=== PATIENT | male | born 1960 | race Caucasian/White ===

== ENCOUNTER → 2018-07-13 | Outpatient (REF) | payer OTHER, MEDICAID ==
[2018-07-13 14:11] LABS: BASO # 0.1 10^3/uL (0.0-0.2); BASO % 0.7 % (0.0-1.0); EOS # 0.2 10^3/uL (0.0-0.50); EOS % 1.5 % (0.0-3.0); HEMATOCRIT 46.9 % (42.0-52.0); HEMOGLOBIN 15.8 g/dl (13.5-17.5); LYMPH # 2.7 10^3/uL (1.5-4.5); LYMPH % 26.4 % (24.0-44.0); MEAN CORPUSCULAR HEMOGLOBIN 32.4 pg (27.0-33.0); MEAN CORPUSCULAR HGB CONC 33.7 g/dl (32.0-36.5); MEAN CORPUSCULAR VOLUME 96.3 fl (80.0-96.0); MONO # 0.8 10^3/uL (0.0-0.8); MONO % 7.2 % (0.0-5.0); NEUTROPHILS # 6.6 10^3/uL (1.8-7.7); NEUTROPHILS % 63.4 % (36.0-66.0); PLATELET COUNT, AUTOMATED 308 10^3/uL (150-450); RED BLOOD COUNT 4.87 10^6/uL (4.30-6.10); WHITE BLOOD COUNT 10.4 10^3/uL (4.0-10.0)
[2018-07-13 14:15] LABS: APPEARANCE, URINE CLEAR (CLEAR); BACTERIA, URINE AUTO NEGATIVE (NEGATIVE); BILIRUBIN, URINE AUTO NEGATIVE (NEGATIVE); BLOOD, URINE BLOOD NEGATIVE (NEGATIVE); COLOR, URINE YELLOW (YELLOW); GLUCOSE, URINE (UA) AUTO NEGATIVE (NEGATIVE); KETONE, URINE AUTO NEGATIVE (NEGATIVE); LEUKOCYTE ESTERASE, URINE AUTO NEGATIVE (NEGATIVE); MUCUS, URINE SMALL (NEGATIVE); NITRITE, URINE AUTO NEGATIVE (NEGATIVE); PROTEIN, URINE AUTO 1+ mg/dL (NEGATIVE); RBC, URINE AUTO 1 /HPF (0-3); SPECIFIC GRAVITY URINE AUTO 1.017 (1.002-1.035); SQUAMOUS EPITHELIAL CELL UR AU 1 /HPF (0-6); UROBILINOGEN, URINE AUTO 0.2 mg/dL (0.0-2.0); WBC, URINE AUTO 1 /HPF (0-3)
[2018-07-13 14:44] LABS: HEMOGLOBIN A1c 6.4 %
[2018-07-13 14:49] LABS: ALBUMIN 4.3 GM/DL (3.2-5.2); ALT/SGPT 25 U/L (12-78); BILIRUBIN,TOTAL 0.4 MG/DL (0.2-1.0); BLOOD UREA NITROGEN 13 MG/DL (7-18); CALCIUM LEVEL 8.5 MG/DL (8.5-10.1); CARBON DIOXIDE LEVEL 27 MEQ/L (21-32); CHLORIDE LEVEL 107 MEQ/L (98-107); CHOLESTEROL LEVEL 221 MG/DL (<200); CREATININE FOR GFR 0.66 MG/DL (0.70-1.30); GLOMERULAR FILTRATION RATE > 60.0 (>56); GLUCOSE, FASTING 88 MG/DL (70-100); HDL CHOLESTEROL 29 MG/DL (>40); LDL CHOLESTEROL 127 MG/DL (<100); NON-HDL-C 192 MG/DL; POTASSIUM SERUM 4.6 MEQ/L (3.5-5.1); SODIUM LEVEL 141 MEQ/L (136-145); TOTAL PROTEIN 7.5 GM/DL (6.4-8.2); TRIGLYCERIDES LEVEL 326 MG/DL (<150)
[2018-07-13 15:12] LABS: MAU/CREAT RATIO 240.9 MCG/MG (0.0-30.0); TOTAL 25(OH) VITAMIN D 11.4 NG/ML (30.0-100.0)
== END ==
LOC: M LABDRWAD 13:53
PROVIDERS: ATTEND Internal Medicine
DX: Z13.228 Encounter for screening for other metabolic disorders (principal); E11.9 Type 2 diabetes mellitus without complications

== ENCOUNTER → 2018-08-29 | Outpatient (CLI) | payer OTHER ==
--- NOTE | 2018-08-29 19:25 | REP ---
MR LUMBAR SPINE WITHOUT CONTRAST: HISTORY: Back pain. Decreased signal intensity on T2-weighted images is present in the T12-L1, L1-2, L4-5 and L5-S1 intervertebral discs. The discs are decreased in height. These findings are consistent with disc degeneration. A diffuse disc bulge is present at the L1 -2 level. There is minimal compression of the thecal sac. There is hypertrophy of the posterior articulating facets. The L1 nerves exit the neural foramina without compression. A diffuse disc bulge is present at the L2-3 level. There is minimal compression of the thecal sac. There is hypertrophy of the posterior articulating facets. The L2 nerves exit the neural foramina without compression. A diffuse disc bulge is present at the L3-4 level. There is minimal compression of the thecal sac. There is hypertrophy of the posterior articulating facets. The L3 nerves exit the neural foramina without compression. A diffuse disc bulge and small central disc protrusion are present at the L4-5 level. There is hypertrophy of the ligamenta flava and posterior articulating facets. These findings produce minimal central canal stenosis. The L4 nerves exit the neural foramina without compression. A diffuse disc bulge is present at the L5-S1 level. This abuts the thecal sac. There is hypertrophy of the posterior articulating facets. There are 8 mm of grade 1 spondylolisthesis of L5 on S1. This is associated with L5 pars defects. There is compression of the L5 nerves in the neural foramina. The conus medullaris is normal in appearance terminating at the level of the L1-2 intervertebral disc . Increased signal intensity on T2 weighted images is present in the endplates of the T12 through L2 and L5 and S1 vertebral bodies. This represents degenerative change. IMPRESSION: 1. Diffuse disc bulges at the L1-2 through L3-4 levels with minimal thecal sac compression. 2. Minimal central canal stenosis at the L4-5 level secondary to disc bulge, disc protrusion, ligamentous, and facet hypertrophy. 3. Diffuse disc bulge at the L5-S1 level. This abuts the thecal sac. There is grade 1 spondylolisthesis of L5 on S1 with associated L5 pars defect. There is compression of the L5 nerves in the neural foramina. Electronically Signed by Luis Alfredo Link MD 08/30/2018 08:32 A
== END ==
LOC: M RAD 14:58
PROVIDERS: ATTEND Family Medicine
DX: M51.36 Other intervertebral disc degeneration, lumbar region (principal); M51.37 Other intervertebral disc degeneration, lumbosacral region; M51.26 Other intervertebral disc displacement, lumbar region; M51.27 Other intervertebral disc displacement, lumbosacral region

== ENCOUNTER → 2018-12-11 | Outpatient (CLI) | payer OTHER ==
[2018-12-11 16:48] LABS: HEMOGLOBIN A1c 6.8 %
[2018-12-11 16:50] LABS: ALBUMIN 3.6 GM/DL (3.2-5.2); ALT/SGPT 19 U/L (12-78); BILIRUBIN,TOTAL 0.3 MG/DL (0.2-1.0); BLOOD UREA NITROGEN 18 MG/DL (7-18); CALCIUM LEVEL 9.1 MG/DL (8.5-10.1); CARBON DIOXIDE LEVEL 26 MEQ/L (21-32); CHLORIDE LEVEL 111 MEQ/L (98-107); CHOLESTEROL LEVEL 206 MG/DL (<200); CHOLESTEROL RISK RATIO 7.103 (<5); CREATININE FOR GFR 0.85 MG/DL (0.70-1.30); GLOMERULAR FILTRATION RATE > 60.0 (>56); GLUCOSE, FASTING 141 MG/DL (70-100); HDL CHOLESTEROL 29 MG/DL (>40); LDL CHOLESTEROL 107 MG/DL (<100); NON-HDL-C 177 MG/DL; POTASSIUM SERUM 4.5 MEQ/L (3.5-5.1); SODIUM LEVEL 143 MEQ/L (136-145); TOTAL PROTEIN 6.7 GM/DL (6.4-8.2); TRIGLYCERIDES LEVEL 350 MG/DL (<150)
== END ==
LOC: M LAB 15:47
PROVIDERS: ATTEND Family Medicine
DX: E11.9 Type 2 diabetes mellitus without complications (principal); Z12.5 Encounter for screening for malignant neoplasm of prostate

== ENCOUNTER → 2019-03-16 | Outpatient (REF) | payer OTHER ==
[2019-03-16 10:18] LABS: BASO # 0.1 10^3/uL (0.0-0.2); BASO % 0.6 % (0.0-1.0); EOS # 0.2 10^3/uL (0.0-0.5); EOS % 1.8 % (0.0-3.0); HEMATOCRIT 46.8 % (42.0-52.0); LYMPH # 2.5 10^3/uL (1.5-5.0); LYMPH % 26.6 % (24.0-44.0); MEAN CORPUSCULAR HEMOGLOBIN 32.7 pg (27.0-33.0); MEAN CORPUSCULAR HGB CONC 34.2 g/dl (32.0-36.5); MEAN CORPUSCULAR VOLUME 95.7 fl (80.0-96.0); MONO # 0.7 10^3/uL (0.0-0.8); MONO % 7.6 % (0.0-5.0); PLATELET COUNT, AUTOMATED 299 10^3/uL (150-450); RED BLOOD COUNT 4.89 10^6/uL (4.30-6.10); WHITE BLOOD COUNT 9.5 10^3/uL (4.0-10.0)
[2019-03-16 10:36] LABS: HEMOGLOBIN A1c 6.6 %
[2019-03-16 10:39] LABS: INR 0.97; PROTHROMBIN TIME 12.6 SECONDS (11.8-14.0)
[2019-03-16 10:40] LABS: PARTIAL THROMBOPLASTIN TIME 39.4 SECONDS (25.0-38.4)
[2019-03-16 10:45] LABS: ALT/SGPT 39 U/L (12-78); BILIRUBIN,TOTAL 0.3 MG/DL (0.2-1.0); BLOOD UREA NITROGEN 14 MG/DL (7-18); CALCIUM LEVEL 9.1 MG/DL (8.5-10.1); CARBON DIOXIDE LEVEL 27 MEQ/L (21-32); CHLORIDE LEVEL 108 MEQ/L (98-107); CHOLESTEROL LEVEL 227 MG/DL (<200); CREATININE FOR GFR 0.91 MG/DL (0.70-1.30); GLOMERULAR FILTRATION RATE > 60.0 (>56); GLUCOSE, FASTING 160 MG/DL (70-100); POTASSIUM SERUM 4.4 MEQ/L (3.5-5.1); SODIUM LEVEL 140 MEQ/L (136-145); TRIGLYCERIDES LEVEL 553 MG/DL (<150)
[2019-03-16 10:46] LABS: ALBUMIN 4.2 GM/DL (3.2-5.2); CHOLESTEROL RISK RATIO 6.485 (<5); HDL CHOLESTEROL 35 MG/DL (>40); NON-HDL-C 192 MG/DL; THYROID STIMULATING HORMONE 0.416 uIU/ML (0.358-3.740); TOTAL PROTEIN 7.6 GM/DL (6.4-8.2)
== END ==
LOC: M LAB REF 09:51
PROVIDERS: ATTEND Family Medicine
DX: Z01.818 Encounter for other preprocedural examination (principal); E78.5 Hyperlipidemia, unspecified; E11.9 Type 2 diabetes mellitus without complications

== ENCOUNTER → 2019-03-20 | Outpatient (CLI) | payer OTHER ==
--- NOTE | 2019-03-21 02:00 | REP ---
Clinical: Preoperative assessment . Comparison: None . Technique: PA and lateral. Findings: The mediastinum and cardiac silhouette are normal. The lung willis are clear and without acute consolidation, effusion, or pneumothorax. The skeletal structures are intact and normal. Impression: 1. No acute cardiopulmonary process. Electronically Signed by Asad Gomez MD 03/21/2019 01:52 A
== END ==
LOC: M ADAMS 15:41
PROVIDERS: ATTEND Family Medicine
DX: Z01.818 Encounter for other preprocedural examination (principal)

== ENCOUNTER → 2019-11-12 | Outpatient (CLI) | payer OTHER ==
--- NOTE | 2019-11-12 12:00 | REPPI ---
REASON FOR EXAM: Back pain. PRIORS: None. There is a grade 2 L5 upon S1 spondylolisthesis secondary to bilateral L5 spondylolysis. There is air density in the L5-S1 disc space consistent with vacuum phenomenon from degenerative disc disease. There is moderate L5-S1 disc space narrowing particularly posteriorly with mild to moderate L4-5 posterior disc space narrowing. More mild appearing disc space narrowing is seen at L1-2 and L2-3 with moderate T12-L1 and L1-2 disc space narrowing with anterior and posterior osteophytic ridging seen at those levels. Degenerative facet joint changes are seen at every level bilaterally particularly L4-5 and L5-S1. The pedicles are intact bilaterally. Vertebral body height is within normal limits. IMPRESSION: Chronic changes as described above. Electronically Signed by Pablo Martinez DO 11/12/2019 01:23 P
== END ==
LOC: M PLAIMG 08:39
PROVIDERS: ATTEND Neurological Surgery
DX: M43.16 Spondylolisthesis, lumbar region (principal); M51.37 Other intervertebral disc degeneration, lumbosacral region; M51.36 Other intervertebral disc degeneration, lumbar region; M25.78 Osteophyte, vertebrae

== ENCOUNTER → 2019-11-12 | Outpatient (CLI) | payer MEDICAID, OTHER ==
--- NOTE | 2019-11-14 15:31 | DEXA ---
AP SPINE L1 - L4 1.343 1.2 1.2 LT FEMUR TOTAL 1.109 0.8 0.5 LT NECK 1.065 0.2 0.9 RT FEMUR TOTAL 1.215 1.6 1.3 RT NECK 1.165 0.9 1.6 TOTAL BODY TOTAL OTHER COMMENTS: Normal bone densitometry of the spine and hips. FOLLOW-UP: Recommendation for the next bone density exam: 5 years. IZABELLA
== END ==
LOC: M WHC 08:05
PROVIDERS: ATTEND Neurological Surgery
DX: M43.16 Spondylolisthesis, lumbar region (principal)

== ENCOUNTER → 2020-03-11 | Outpatient (REF) | payer OTHER ==
[2020-03-11 17:26] LABS: BASO # 0.1 10^3/uL (0.0-0.2); BASO % 0.7 % (0.0-1.0); EOS # 0.1 10^3/uL (0.0-0.5); EOS % 1.5 % (0.0-3.0); HEMATOCRIT 48.5 % (42.0-52.0); HEMOGLOBIN 16.4 g/dl (13.5-17.5); LYMPH # 2.1 10^3/uL (1.5-5.0); LYMPH % 23.1 % (24.0-44.0); MEAN CORPUSCULAR HEMOGLOBIN 32.2 pg (27.0-33.0); MEAN CORPUSCULAR HGB CONC 33.8 g/dl (32.0-36.5); MEAN CORPUSCULAR VOLUME 95.1 fl (80.0-96.0); MONO # 0.6 10^3/uL (0.0-0.8); MONO % 6.7 % (0.0-5.0); NEUTROPHILS # 6.2 10^3/uL (1.5-8.5); NEUTROPHILS % 67.6 % (36.0-66.0); PLATELET COUNT, AUTOMATED 273 10^3/uL (150-450); WHITE BLOOD COUNT 9.2 10^3/uL (4.0-10.0)
[2020-03-11 18:18] LABS: MAU/CREAT RATIO 258.9 MCG/MG (0.0-30.0)
[2020-03-11 20:34] LABS: ALBUMIN 4.1 GM/DL (3.2-5.2); ALT/SGPT 23 U/L (12-78); BILIRUBIN,TOTAL 0.3 MG/DL (0.2-1.0); BLOOD UREA NITROGEN 14 MG/DL (7-18); CARBON DIOXIDE LEVEL 24 MEQ/L (21-32); CHLORIDE LEVEL 107 MEQ/L (98-107); CHOLESTEROL LEVEL 250 MG/DL (<200); CREATININE FOR GFR 0.83 MG/DL (0.70-1.30); GLOMERULAR FILTRATION RATE > 60.0 (>49); GLUCOSE, FASTING 150 MG/DL (70-100); HDL CHOLESTEROL 25 MG/DL (>40); NON-HDL-C 225 MG/DL; SODIUM LEVEL 139 MEQ/L (136-145); TOTAL PROTEIN 7.5 GM/DL (6.4-8.2); TRIGLYCERIDES LEVEL 801 MG/DL (<150)
[2020-03-11 22:35] LABS: HEMOGLOBIN A1c 6.5 %
== END ==
LOC: M LAB REF 16:17
PROVIDERS: ATTEND Physician Assistant
DX: E11.69 Type 2 diabetes mellitus with other specified complication (principal)

== ENCOUNTER → 2020-04-09 | Outpatient (CLI) | payer OTHER ==
--- NOTE | 2020-04-09 13:44 | REP ---
INDICATION: DEGENERATE DISC DISEASE. COMPARISON: None. TECHNIQUE: Single AP view of the pelvis FINDINGS: Mild age-related degenerative changes to the bilateral hips includes increased sclerosis along the acetabular roof with marginal spurring and minimal joint space narrowing. Sacroiliac joints appear symmetric and normal. No evidence for acute or fracture or dislocation. IMPRESSION: Mild symmetric age-related changes to the bilateral hips. <Electronically signed by Asad Gomez > 04/09/20 [id number]
--- NOTE | 2020-04-09 14:24 | REP ---
INDICATION: DEGENERATE DISC DISEASE COMPARISON: 11/12/2019 TECHNIQUE: AP, lateral, flexion/extension, bilateral oblique, and coned-down views. FINDINGS: Chronic grade 2 anterolisthesis of approximately 18 mm at the L5-S1 level due to bilateral spondylolysis is again noted. Associated endplate sclerosis and disc space narrowing is appreciated. Alignment and lordosis from T12 through L5 is normal. Moderate/early advanced degenerative changes including endplate sclerosis with disc space narrowing and marginal spurring at T12-L1 and L1-L2 is appreciated. L2-3 through L4-5 appear relatively age-appropriate. IMPRESSION: Chronic advanced degenerative changes at the L5-S1 level including grade 2 spondylolysis with spondylolisthesis. Moderate early advanced degenerative changes noted through the upper lumbar spine. <Electronically signed by Asad Gomez > 04/09/20 [id number]
== END ==
LOC: M ADAMS 12:00
PROVIDERS: ATTEND Physician Assistant
DX: M48.062 Spinal stenosis, lumbar region with neurogenic claudication (principal); M17.0 Bilateral primary osteoarthritis of knee; M51.36 Other intervertebral disc degeneration, lumbar region; M43.16 Spondylolisthesis, lumbar region

== ENCOUNTER → 2020-04-15 | Outpatient (CLI) | payer SELFPAY | LOC: M LABSMTC 17:08 | PROVIDERS: ATTEND Pediatrics | DX: Z11.59 Encounter for screening for other viral diseases (principal) ==

== ENCOUNTER → 2020-07-18 | Outpatient (REF) | payer OTHER ==
[2020-07-18 13:19] LABS: ALBUMIN 4.1 GM/DL (3.2-5.2); ALT/SGPT 24 U/L (12-78); BILIRUBIN,TOTAL 0.3 MG/DL (0.2-1.0); BLOOD UREA NITROGEN 13 MG/DL (7-18); CALCIUM LEVEL 9.2 MG/DL (8.8-10.2); CARBON DIOXIDE LEVEL 27 MEQ/L (21-32); CHLORIDE LEVEL 108 MEQ/L (98-107); CHOLESTEROL LEVEL 149 MG/DL (<200); CHOLESTEROL RISK RATIO 5.518 (<5); CREATININE FOR GFR 0.86 MG/DL (0.70-1.30); GLOMERULAR FILTRATION RATE > 60.0 (>49); GLUCOSE, FASTING 155 MG/DL (70-100); GLUCOSE,RANDOM 155 MG/DL (LESS THAN 200); HDL CHOLESTEROL 27 MG/DL (>40); NON-HDL-C 122 MG/DL; POTASSIUM SERUM 4.5 MEQ/L (3.5-5.1); SODIUM LEVEL 140 MEQ/L (136-145); TOTAL PROTEIN 7.4 GM/DL (6.4-8.2); TRIGLYCERIDES LEVEL 448 MG/DL (<150)
[2020-07-18 14:04] LABS: HEMOGLOBIN A1c 6.4 %
[2020-07-18 14:43] LABS: MAU/CREAT RATIO 127.6 MCG/MG (0.0-30.0)
== END ==
LOC: M LAB REF 11:42
PROVIDERS: ATTEND Physician Assistant
DX: E11.9 Type 2 diabetes mellitus without complications (principal); Z12.5 Encounter for screening for malignant neoplasm of prostate; E78.5 Hyperlipidemia, unspecified
CPT/HCPCS: 80053; 80061; 82043; 82947; 83036; G0103

== ENCOUNTER → 2021-01-15 | Outpatient (CLI) | payer OTHER, MEDICAID ==
--- NOTE | 2021-01-15 09:44 | REP ---
INDICATION: PAIN IN BOTH LEGS COMPARISON: None. TECHNIQUE: Real time hoffman scale and Duplex Doppler evaluation of the bilateral lower extremity arterial vasculature using linear high frequency transducer. FINDINGS: Hoffman scale and duplex doppler images demonstrate mild amounts of atheromatous plaquing with areas of mild narrowing but no focal stenosis identified. There is no occlusion. Doppler interrogation demonstrates normal arterial wave forms and velocities bilaterally. SHOBHA right 0.97 and left 0.94. Peak systolic velocities (cm/sec) Common femoral artery: Right 182; Left 111 Profunda femoris: Right 173; Left 134 SFA (proximal): Right 163; Left 139 SFA (mid): Right 94; Left 103 SFA (distal): Right 167; Left 127 Popliteal artery: Right 56; Left 104 [place] (prox.): Right 72; Left 77 Tibioperoneal trunk: Right 46; Left 65 [employer] (prox.): Right 85; Left 105 [employer] (distal): Right 55; Left 47 [place] (distal): Right 71; Left 59 IMPRESSION: Mild atheromatous changes with areas of narrowing but no focal occlusion or stenosis. <Electronically signed by Artemio Hoffman > 01/15/21 [id number]
== END ==
LOC: M RAD 08:24
PROVIDERS: ATTEND Physician Assistant
DX: M79.605 Pain in left leg (principal); M79.604 Pain in right leg; I70.203 Unspecified atherosclerosis of native arteries of extremities, bilateral legs

== ENCOUNTER → 2021-04-09 | Outpatient (CLI) | payer OTHER, MEDICAID ==
[~2021-04-09] MED LIST: AMLO1TAB25 PO; ASPI81TA26 PO; LISI40TA4 PO; METF-838 PO; REPA140I SC
== END ==
LOC: M RAD 08:50
PROVIDERS: ATTEND Physician Assistant
DX: Z12.2 Encounter for screening for malignant neoplasm of respiratory organs (principal); J43.9 Emphysema, unspecified; J84.9 Interstitial pulmonary disease, unspecified; R91.8 Other nonspecific abnormal finding of lung field

== ENCOUNTER → 2021-05-11 | Outpatient (CLI) | payer OTHER, MEDICAID | LOC: M LABSMTC 12:21 | PROVIDERS: ATTEND Anesthesiology | DX: Z01.812 Encounter for preprocedural laboratory examination (principal); Z20.822 Contact with and (suspected) exposure to COVID-19 ==

== ENCOUNTER 2021-05-14 07:55 | Day surgery (SDC) | payer OTHER ==
[~2021-05-14] VITALS: Ht 193 cm; Wt 111.0 kg
[~2021-05-14 07:55] MED LIST changes: +LIDOCAINE 2% 100MG/5ML SDV (FOR ANES.) As Ordered ONE; +NS 1,000 ML IV ONE; +propofoL 200 MG/20 ML VIAL As Ordered ONE
[2021-05-14] MEDS ORDERED: propofoL 200 MG/20 ML VIAL As Ordered ONE ×3 (09:39→11:54)
[2021-05-14 10:25] VITALS: BP 135/69
[2021-05-14] MEDS ORDERED: GLUCAGON INJ 1MG VIAL As Ordered ONE (11:53)
== END 2021-05-14 10:40 | disposition home or self-care (01) ==
LOC: M OPP 07:55
PROVIDERS: ATTEND Surgery
DX: R85.89 Other abnormal findings in specimens from digestive organs and abdominal cavity (principal); R19.5 Other fecal abnormalities; K62.1 Rectal polyp; K63.5 Polyp of colon; I10 Essential (primary) hypertension; E78.5 Hyperlipidemia, unspecified; E11.9 Type 2 diabetes mellitus without complications; F17.200 Nicotine dependence, unspecified, uncomplicated; Z79.899 Other long term (current) drug therapy; Z79.82 Long term (current) use of aspirin
CPT/HCPCS: 45385; 88305; J1610

== ENCOUNTER → 2021-11-02 | Outpatient (CLI) | payer OTHER, MEDICAID ==
[~2021-11-02] MED LIST changes: -LIDOCAINE 2% 100MG/5ML SDV (FOR ANES.) As Ordered ONE; -NS 1,000 ML IV ONE; -propofoL 200 MG/20 ML VIAL As Ordered ONE
== END ==
LOC: M RAD 07:14
PROVIDERS: ATTEND Nurse Practitioner Family
DX: Z12.2 Encounter for screening for malignant neoplasm of respiratory organs (principal); R91.8 Other nonspecific abnormal finding of lung field; J84.9 Interstitial pulmonary disease, unspecified; J47.9 Bronchiectasis, uncomplicated; F17.200 Nicotine dependence, unspecified, uncomplicated

== ENCOUNTER → 2022-03-22 | Outpatient (REF) | payer OTHER, MEDICAID ==
[2022-03-22 13:06] LABS: HEMOGLOBIN A1c 7.5 %
[2022-03-22 13:23] LABS: CHOLESTEROL LEVEL 169 MG/DL (<200); CHOLESTEROL RISK RATIO 6.259 (<5); HDL CHOLESTEROL 27 MG/DL (>40); NON-HDL-C 142 MG/DL; TRIGLYCERIDES LEVEL 507 MG/DL (<150)
== END ==
LOC: M LAB REF 11:48
PROVIDERS: ATTEND Nurse Practitioner Family
DX: E11.8 Type 2 diabetes mellitus with unspecified complications (principal); E78.5 Hyperlipidemia, unspecified

== ENCOUNTER → 2022-05-25 | Outpatient (CLI) | payer OTHER, MEDICAID | LOC: M LAB 15:59 | PROVIDERS: ATTEND Neurological Surgery | DX: F17.200 Nicotine dependence, unspecified, uncomplicated (principal); Z03.89 Encounter for observation for other suspected diseases and conditions ruled out | CPT/HCPCS: 36415; G0480 ==

== ENCOUNTER → 2022-06-28 | Outpatient (REF) | payer OTHER, MEDICAID ==
[2022-06-28 13:28] LABS: HEMOGLOBIN A1c 7.6 % (4.0-6.0)
[2022-06-28 13:36] LABS: CHOLESTEROL RISK RATIO 3.91 (<5); LDL CHOLESTEROL 44.2 MG/DL (<100)
== END ==
LOC: M LAB REF 12:03
PROVIDERS: ATTEND Nurse Practitioner Family
DX: E78.5 Hyperlipidemia, unspecified (principal); E11.8 Type 2 diabetes mellitus with unspecified complications

== ENCOUNTER → 2022-07-16 | Outpatient (CLI) | payer OTHER, MEDICAID | LOC: M ADAMS 11:53 | PROVIDERS: ATTEND Nurse Practitioner Family | DX: M85.612 Other cyst of bone, left shoulder (principal); R93.6 Abnormal findings on diagnostic imaging of limbs ==

== ENCOUNTER → 2022-10-13 | Outpatient (REF) | payer OTHER, MEDICAID ==
[2022-10-13 13:52] LABS: CHOLESTEROL RISK RATIO 3.96 (<5); HDL CHOLESTEROL 27.5 MG/DL (>40); LDL CHOLESTEROL 47.5 MG/DL (<100); NON-HDL-C 81.5 MG/DL
== END ==
LOC: M LAB REF 12:28
PROVIDERS: ATTEND Nurse Practitioner Family
DX: E11.8 Type 2 diabetes mellitus with unspecified complications (principal); E78.5 Hyperlipidemia, unspecified

== ENCOUNTER 2023-01-04 09:22 | Emergency (ER) | payer OTHER, MEDICAID ==
[~2023-01-04] VITALS: Ht 193 cm; Wt 103.2 kg
[2023-01-04] MEDS ORDERED: LEVO1TAB39 PO (12:12)
[2023-01-04 12:43] VITALS: BP 123/79; TEMP 97; O2SAT 99
[2023-01-04 12:59] LABS: GC DNA AMPLIFICATION NEGATIVE (NEGATIVE)
== END 2023-01-04 12:45 | disposition home or self-care (01) ==
LOC: M ED 09:22
DX: R31.9 Hematuria, unspecified (principal); N39.0 Urinary tract infection, site not specified; N45.3 Epididymo-orchitis; I10 Essential (primary) hypertension; E11.9 Type 2 diabetes mellitus without complications; F17.200 Nicotine dependence, unspecified, uncomplicated; Z79.82 Long term (current) use of aspirin; Z79.84 Long term (current) use of oral hypoglycemic drugs; Z79.899 Other long term (current) drug therapy

== ENCOUNTER → 2023-01-26 | Outpatient (REF) | payer OTHER, MEDICAID ==
[~2023-01-26] MED LIST changes: +LEVO1TAB39 PO
[2023-01-26 13:26] LABS: CHOLESTEROL RISK RATIO 5.47 (<5); HDL CHOLESTEROL 31.4 MG/DL (>40); NON-HDL-C 140.6 MG/DL
[2023-01-26 13:50] LABS: HEMOGLOBIN A1c 5.6 % (4.0-6.0)
== END ==
LOC: M LAB REF 11:41
PROVIDERS: ATTEND Nurse Practitioner Family
DX: E11.65 Type 2 diabetes mellitus with hyperglycemia (principal); E78.5 Hyperlipidemia, unspecified

== ENCOUNTER → 2023-03-02 | Outpatient (CLI) | payer OTHER, MEDICAID | LOC: M RAD 09:41 | PROVIDERS: ATTEND Nurse Practitioner Family | DX: Z12.2 Encounter for screening for malignant neoplasm of respiratory organs (principal); F17.200 Nicotine dependence, unspecified, uncomplicated ==

== ENCOUNTER 2023-03-21 14:10 | Inpatient (IN) | payer MEDICAID, OTHER ==
[~2023-03-21] VITALS: Ht 193 cm; Wt 103.6 kg
[2023-03-21] MEDS ORDERED: TAMS1CAP17 (14:21)
[2023-03-21 17:08] LABS: ERYTHROCYTE SEDIMENTATION RATE > 130 mm/hr (0-20)
[2023-03-21 17:16] LABS: BASO # 0.1 10^3/uL (0.0-0.2); BASO % 0.3 % (0.0-1.0); EOS % 0.1 % (0.0-3.0); HEMATOCRIT 34.4 % (42.0-52.0); HEMOGLOBIN 11.7 g/dl (13.5-17.5); LYMPH # 0.7 10^3/uL (1.5-5.0); LYMPH % 1.9 % (24.0-44.0); MEAN CORPUSCULAR HEMOGLOBIN 31.6 pg (27.0-33.0); MONO # 1.7 10^3/uL (0.0-0.8); MONO % 4.4 % (2.0-8.0); NEUTROPHILS # 35.9 10^3/uL (1.5-8.5); NEUTROPHILS % 92.3 % (36.0-66.0); PLATELET COUNT, AUTOMATED 433 10^3/uL (150-450)
[2023-03-21 17:17] LABS: CALCIUM LEVEL 8.6 MG/DL (8.3-10.6); CREATININE FOR GFR 1.5 MG/DL (0.70-1.30); GLOMERULAR FILTRATION RATE 50.3 (>49); POTASSIUM SERUM 4.1 MMOL/L (3.5-5.1); WHITE BLOOD COUNT 38.9 10^3/uL (4.0-10.0)
[2023-03-21 17:25] LABS: C REACTIVE PROTEIN QUANTITATIV 28.6 MG/DL (<1.0)
[2023-03-21] MEDS ORDERED: VANCOMYCIN HCL 1,500 MG in IV FLUID PLACE HOLDER 1 EA IV ONE (19:45)
[2023-03-21] MEDS ORDERED: NS 1,000 ML IV ONE ×2 (19:45→22:25)
[2023-03-21] MEDS ORDERED: MORPHINE 4 MG/ML 1ML VIAL IV ONE (19:45)
[2023-03-21] MEDS ORDERED: ONDANSETRON 4MG 2ML VIAL IV ONE (19:45)
[2023-03-21] MEDS ORDERED: PIPERACILLIN/TAZOBACTAM SOD 4.5 GM in D5W MINI-BAG PLUS 50 ML IV ONE (19:45)
[2023-03-21 19:49] LABS: RSV AMPLIFICATION NEGATIVE (NEGATIVE)
[2023-03-21] MEDS ORDERED: ISOVUE-370 76% 100ML VIAL As Ordered ONE (20:07)
[2023-03-21] MEDS ORDERED: VANCOMYCIN HCL 750 MG, VIAL MATE ADAPTER 1 EACH in D5W 250 ML IV ONE ×6 (21:00)
[2023-03-21] MEDS ORDERED: METF10004 PO (21:23)
[2023-03-21] MEDS ORDERED: HOME MED LIST COMPLETE! XX SCH (21:25)
[2023-03-21] MEDS ORDERED: DEXTROSE 50% 50ML SYRINGE IV PRN (23:15)
[2023-03-21] MEDS ORDERED: HYDROMORPHONE HCL 0.5 MG/ 0.5 ML SYRINGE IV PRN ×2 (23:15)
[2023-03-21] MEDS ORDERED: GLUCOSE 4GM CHEW TABLET PO PRN (23:15)
[2023-03-21] MEDS ORDERED: GLUCAGON INJ 1MG VIAL SC PRN (23:15)
[2023-03-21] MEDS: NS 1,000 ML IV SCH (23:15)
[2023-03-21] MEDS ORDERED: fentaNYL 100 MCG/2 ML INJECTION As Ordered ONE (23:45)
[2023-03-21] MEDS ORDERED: propofoL 200 MG/20 ML VIAL As Ordered ONE ×2 (23:45→23:46)
[2023-03-21] MEDS ORDERED: LIDOCAINE 2% 100MG/5ML SDV (FOR ANES.) As Ordered ONE (23:45)
[2023-03-21] MEDS ORDERED: ONDANSETRON 4MG 2ML VIAL IV PRN (23:45)
[2023-03-21] MEDS ORDERED: MIDAZOLAM INJ 2MG/2ML VIAL As Ordered ONE (23:45)
[2023-03-22] VITALS (7 sets, daily range): BP systolic 94–111; BP diastolic 52–63; TEMP 96.7–97.6; O2SAT 97–100
[2023-03-22] MEDS ORDERED: ePHEDrine SULFATE 25 MG/5 ML(5MG/ML) SYRINGE As Ordered ONE (01:49)
[2023-03-22] MEDS ORDERED: KETOROLAC 60MG 2ML VIAL As Ordered ONE (02:15)
[2023-03-22] MEDS ORDERED: ONDANSETRON 4MG 2ML VIAL As Ordered ONE (02:15)
[2023-03-22] MEDS: CLINDAMYCIN 900 MG in IV 1 EA IV SCH ×4 (02:59→23:35)
[2023-03-22] MEDS: PIPERACILLIN/TAZOBACTAM SOD 4.5 GM in D5W MINI-BAG PLUS 50 ML IV SCH ×4 (04:04→20:01)
[2023-03-22 04:36] LABS: HEMATOCRIT 28.4 % (42.0-52.0); HEMOGLOBIN 9.8 g/dl (13.5-17.5); MEAN CORPUSCULAR HEMOGLOBIN 31.9 pg (27.0-33.0); MEAN CORPUSCULAR HGB CONC 34.5 g/dl (32.0-36.5); MEAN CORPUSCULAR VOLUME 92.5 fl (80.0-96.0); PLATELET COUNT, AUTOMATED 335 10^3/uL (150-450); RED BLOOD COUNT 3.07 10^6/uL (4.30-6.10); WHITE BLOOD COUNT 27.2 10^3/uL (4.0-10.0)
[2023-03-22 05:05] LABS: C REACTIVE PROTEIN QUANTITATIV 27.9 MG/DL (<1.0)
[2023-03-22 05:06] LABS: CALCIUM LEVEL 7.6 MG/DL (8.3-10.6); CREATININE FOR GFR 1.55 MG/DL (0.70-1.30); GLOMERULAR FILTRATION RATE 48.5 (>49); MAGNESIUM LEVEL 1.5 MG/DL (1.8-2.4); POTASSIUM SERUM 4.2 MMOL/L (3.5-5.1)
[2023-03-22] MEDS: PERCOCET 5MG/325MG TAB PO PRN ×3 (05:51→22:43)
[2023-03-22] MEDS: INSULIN LISPRO (NovoLOG) PER UNIT SC SCH ×5 (06:37→19:56)
[2023-03-22] MEDS: NS 1,000 ML IV SCH ×3 (08:04→19:39)
[2023-03-22] MEDS: MAG SULF 1GM/100ML (MAG RUN) 1 GM in IV 1 EA IV SCH ×3 (09:16→11:14)
[2023-03-22] MEDS: VANCOMYCIN HCL 1,000 MG, VIAL MATE ADAPTER 1 EACH in D5W 250 ML IV SCH ×2 (09:34→21:08)
[2023-03-22] MEDS: HEPARIN SOD (PORCINE) 5000UNITS/ML 1ML VIAL/SYRINGE SQ SCH ×2 (13:08→21:09)
[2023-03-23] VITALS (8 sets, daily range): BP systolic 96–142; BP diastolic 50–88; TEMP 97.4–98.8; O2SAT 96–99
[2023-03-23] MEDS: PIPERACILLIN/TAZOBACTAM SOD 4.5 GM in D5W MINI-BAG PLUS 50 ML IV SCH ×4 (02:56→21:46)
[2023-03-23 04:45] LABS: BASO # 0.1 10^3/uL (0.0-0.2); BASO % 0.5 % (0.0-1.0); EOS # 0.1 10^3/uL (0.0-0.5); EOS % 0.8 % (0.0-3.0); HEMATOCRIT 28.8 % (42.0-52.0); HEMOGLOBIN 9.6 g/dl (13.5-17.5); LYMPH # 1.5 10^3/uL (1.5-5.0); LYMPH % 8.8 % (24.0-44.0); MEAN CORPUSCULAR HGB CONC 33.3 g/dl (32.0-36.5); MEAN CORPUSCULAR VOLUME 92.9 fl (80.0-96.0); MONO # 1.2 10^3/uL (0.0-0.8); NEUTROPHILS % 82.5 % (36.0-66.0); PLATELET COUNT, AUTOMATED 353 10^3/uL (150-450); WHITE BLOOD COUNT 16.9 10^3/uL (4.0-10.0)
[2023-03-23 05:11] LABS: ALBUMIN 2.3 G/DL (3.2-5.2); ALKALINE PHOSPHATASE 97 U/L (46-116); ALT/SGPT 46 U/L (7.0-40); AST/SGOT 38 U/L (<34); BILIRUBIN,TOTAL 0.5 MG/DL (0.3-1.2); BLOOD UREA NITROGEN 19 MG/DL (9-23); CALCIUM LEVEL 7.9 MG/DL (8.3-10.6); CARBON DIOXIDE LEVEL 20 MMOL/L (20-31); CHLORIDE LEVEL 108 MMOL/L (98-107); GLOMERULAR FILTRATION RATE > 60.0 (>49); GLUCOSE, FASTING 120 MG/DL (74-106); MAGNESIUM LEVEL 1.9 MG/DL (1.8-2.4); POTASSIUM SERUM 4.1 MMOL/L (3.5-5.1); SODIUM LEVEL 138 MMOL/L (136-145); TOTAL PROTEIN 5.5 G/DL (5.7-8.2)
[2023-03-23] MEDS: PERCOCET 5MG/325MG TAB PO PRN ×4 (06:00→21:46)
[2023-03-23] MEDS: HEPARIN SOD (PORCINE) 5000UNITS/ML 1ML VIAL/SYRINGE SQ SCH ×3 (06:00→21:45)
[2023-03-23] MEDS: INSULIN LISPRO (NovoLOG) PER UNIT SC SCH ×4 (09:01→21:00)
[2023-03-23] MEDS: NS 1,000 ML IV SCH (09:01)
[2023-03-23] MEDS: CLINDAMYCIN 900 MG in IV 1 EA IV SCH ×2 (09:02→16:41)
[2023-03-23] MEDS: VANCOMYCIN HCL 750 MG, VIAL MATE ADAPTER 1 EACH in D5W 250 ML IV SCH ×3 (10:48→22:00)
[2023-03-23] MEDS ORDERED: MORPHINE 2 MG/ML 1ML VIAL IV STA (11:29)
[2023-03-24] MEDS: VANCOMYCIN HCL 750 MG, VIAL MATE ADAPTER 1 EACH in D5W 250 ML IV SCH ×2 (00:27→10:17)
[2023-03-24] MEDS: PIPERACILLIN/TAZOBACTAM SOD 4.5 GM in D5W MINI-BAG PLUS 50 ML IV SCH ×4 (02:56→21:34)
[2023-03-24 04:27] VITALS: BP 138/67; TEMP 97.7; O2SAT 98
[2023-03-24] MEDS: PERCOCET 5MG/325MG TAB PO PRN ×4 (04:27→21:33)
[2023-03-24 04:56] LABS: BASO # 0.1 10^3/uL (0.0-0.2); BASO % 0.6 % (0.0-1.0); EOS # 0.2 10^3/uL (0.0-0.5); EOS % 1.2 % (0.0-3.0); HEMATOCRIT 27.3 % (42.0-52.0); HEMOGLOBIN 9.1 g/dl (13.5-17.5); LYMPH # 1.8 10^3/uL (1.5-5.0); LYMPH % 14.3 % (24.0-44.0); MEAN CORPUSCULAR HEMOGLOBIN 30.5 pg (27.0-33.0); MEAN CORPUSCULAR HGB CONC 33.3 g/dl (32.0-36.5); MEAN CORPUSCULAR VOLUME 91.6 fl (80.0-96.0); MONO % 7.8 % (2.0-8.0); NEUTROPHILS # 9.5 10^3/uL (1.5-8.5); NEUTROPHILS % 75.7 % (36.0-66.0); PLATELET COUNT, AUTOMATED 379 10^3/uL (150-450); RED BLOOD COUNT 2.98 10^6/uL (4.30-6.10); WHITE BLOOD COUNT 12.6 10^3/uL (4.0-10.0)
[2023-03-24 05:05] LABS: ALBUMIN 2.3 G/DL (3.2-5.2); ALKALINE PHOSPHATASE 94 U/L (46-116); ALT/SGPT 60 U/L (7.0-40); AST/SGOT 32 U/L (<34); BILIRUBIN,TOTAL 0.4 MG/DL (0.3-1.2); BLOOD UREA NITROGEN 13 MG/DL (9-23); CARBON DIOXIDE LEVEL 22 MMOL/L (20-31); CHLORIDE LEVEL 106 MMOL/L (98-107); CREATININE FOR GFR 0.94 MG/DL (0.70-1.30); GLOMERULAR FILTRATION RATE > 60.0 (>49); GLUCOSE, FASTING 157 MG/DL (74-106); MAGNESIUM LEVEL 1.4 MG/DL (1.8-2.4); POTASSIUM SERUM 3.9 MMOL/L (3.5-5.1); SODIUM LEVEL 137 MMOL/L (136-145); TOTAL PROTEIN 5.4 G/DL (5.7-8.2)
[2023-03-24] MEDS: HEPARIN SOD (PORCINE) 5000UNITS/ML 1ML VIAL/SYRINGE SQ SCH ×3 (06:29→21:28)
[2023-03-24 07:29] VITALS: BP 156/74; TEMP 96.9; O2SAT 99
[2023-03-24 08:00] VITALS: BP 141/73; TEMP 98.1; O2SAT 97
[2023-03-24] MEDS: INSULIN LISPRO (NovoLOG) PER UNIT SC SCH ×4 (08:44→21:00)
[2023-03-24] MEDS: LACTOBACILLUS ACIDOPHILUS CAP (BACID) PO SCH ×4 (08:45→21:29)
[2023-03-24] MEDS: lisinopriL 40MG TAB PO SCH (08:45)
[2023-03-24] MEDS: MAG SULF 1GM/100ML (MAG RUN) 1 GM in IV 1 EA IV SCH ×3 (08:47→12:09)
[2023-03-24] MEDS ORDERED: INFLUENZA QUADRIVALENT PF VACCINE 0.5ML SYRINGE IM.IMMUN ONE (10:00)
[2023-03-24 14:30] VITALS: BP 148/68; TEMP 97.5; O2SAT 99
[2023-03-24] MEDS: VANCOMYCIN HCL 1,000 MG, VIAL MATE ADAPTER 1 EACH in D5W 250 ML IV SCH (16:21)
[2023-03-24 21:00] VITALS: BP 144/69; TEMP 98.1; O2SAT 98
[2023-03-25] MEDS: VANCOMYCIN HCL 1,000 MG, VIAL MATE ADAPTER 1 EACH in D5W 250 ML IV SCH ×2 (00:30→08:34)
[2023-03-25] MEDS: PIPERACILLIN/TAZOBACTAM SOD 4.5 GM in D5W MINI-BAG PLUS 50 ML IV SCH ×4 (02:05→20:20)
[2023-03-25] MEDS: PERCOCET 5MG/325MG TAB PO PRN ×4 (02:11→20:19)
[2023-03-25 05:15] VITALS: BP 144/70; TEMP 97.9; O2SAT 97
[2023-03-25] MEDS: HEPARIN SOD (PORCINE) 5000UNITS/ML 1ML VIAL/SYRINGE SQ SCH ×3 (06:02→20:19)
[2023-03-25 06:03] LABS: BASO # 0.1 10^3/uL (0.0-0.2); BASO % 0.7 % (0.0-1.0); EOS # 0.2 10^3/uL (0.0-0.5); EOS % 1.6 % (0.0-3.0); HEMATOCRIT 28.7 % (42.0-52.0); HEMOGLOBIN 9.7 g/dl (13.5-17.5); LYMPH # 1.9 10^3/uL (1.5-5.0); LYMPH % 17.2 % (24.0-44.0); MEAN CORPUSCULAR HEMOGLOBIN 30.7 pg (27.0-33.0); MEAN CORPUSCULAR HGB CONC 33.8 g/dl (32.0-36.5); MEAN CORPUSCULAR VOLUME 90.8 fl (80.0-96.0); MONO # 0.9 10^3/uL (0.0-0.8); MONO % 8.2 % (2.0-8.0); NEUTROPHILS # 7.8 10^3/uL (1.5-8.5); NEUTROPHILS % 71.6 % (36.0-66.0); PLATELET COUNT, AUTOMATED 411 10^3/uL (150-450); RED BLOOD COUNT 3.16 10^6/uL (4.30-6.10); WHITE BLOOD COUNT 10.9 10^3/uL (4.0-10.0)
[2023-03-25 06:23] LABS: ALBUMIN 2.5 G/DL (3.2-5.2); ALKALINE PHOSPHATASE 93 U/L (46-116); ALT/SGPT 68 U/L (7.0-40); AST/SGOT 33 U/L (<34); BILIRUBIN,TOTAL 0.3 MG/DL (0.3-1.2); BLOOD UREA NITROGEN 10 MG/DL (9-23); CALCIUM LEVEL 8.2 MG/DL (8.3-10.6); CARBON DIOXIDE LEVEL 24 MMOL/L (20-31); CHLORIDE LEVEL 108 MMOL/L (98-107); CREATININE FOR GFR 0.89 MG/DL (0.70-1.30); GLOMERULAR FILTRATION RATE > 60.0 (>49); GLUCOSE, FASTING 140 MG/DL (74-106); MAGNESIUM LEVEL 1.5 MG/DL (1.8-2.4); POTASSIUM SERUM 4.4 MMOL/L (3.5-5.1); SODIUM LEVEL 141 MMOL/L (136-145); TOTAL PROTEIN 5.6 G/DL (5.7-8.2)
[2023-03-25] MEDS: MAG SULF 1GM/100ML (MAG RUN) 1 GM in IV 1 EA IV SCH ×2 (08:33→09:43)
[2023-03-25] MEDS: lisinopriL 40MG TAB PO SCH (08:34)
[2023-03-25] MEDS: LACTOBACILLUS ACIDOPHILUS CAP (BACID) PO SCH ×4 (08:34→20:19)
[2023-03-25] MEDS: INSULIN LISPRO (NovoLOG) PER UNIT SC SCH ×4 (08:34→20:00)
[2023-03-25] MEDS: MAGNESIUM OXIDE 400MG TAB (MAG-OX) PO SCH ×2 (08:34→20:19)
[2023-03-25 14:05] VITALS: BP 144/78; TEMP 97.5; O2SAT 99
[2023-03-25 19:53] VITALS: BP 144/77; TEMP 97.7; O2SAT 98
[2023-03-26] MEDS: PIPERACILLIN/TAZOBACTAM SOD 4.5 GM in D5W MINI-BAG PLUS 50 ML IV SCH ×4 (02:53→19:36)
[2023-03-26] MEDS: PERCOCET 5MG/325MG TAB PO PRN ×3 (02:55→19:37)
[2023-03-26] MEDS: HEPARIN SOD (PORCINE) 5000UNITS/ML 1ML VIAL/SYRINGE SQ SCH ×3 (05:16→21:05)
[2023-03-26 06:00] VITALS: BP 143/77; TEMP 98.3; O2SAT 99
[2023-03-26 06:09] LABS: BASO # 0.1 10^3/uL (0.0-0.2); EOS # 0.2 10^3/uL (0.0-0.5); HEMATOCRIT 29.7 % (42.0-52.0); HEMOGLOBIN 10.1 g/dl (13.5-17.5); MEAN CORPUSCULAR VOLUME 91.1 fl (80.0-96.0); MONO # 0.8 10^3/uL (0.0-0.8); MONO % 8.1 % (2.0-8.0); NEUTROPHILS # 7.1 10^3/uL (1.5-8.5); NEUTROPHILS % 68.5 % (36.0-66.0); PLATELET COUNT, AUTOMATED 428 10^3/uL (150-450); RED BLOOD COUNT 3.26 10^6/uL (4.30-6.10); WHITE BLOOD COUNT 10.3 10^3/uL (4.0-10.0)
[2023-03-26 06:43] LABS: ALBUMIN 2.5 G/DL (3.2-5.2); ALKALINE PHOSPHATASE 93 U/L (46-116); ALT/SGPT 108 U/L (7.0-40); AST/SGOT 62 U/L (<34); BILIRUBIN,TOTAL 0.2 MG/DL (0.3-1.2); BLOOD UREA NITROGEN 12 MG/DL (9-23); CALCIUM LEVEL 8.1 MG/DL (8.3-10.6); CARBON DIOXIDE LEVEL 22 MMOL/L (20-31); CHLORIDE LEVEL 110 MMOL/L (98-107); CREATININE FOR GFR 0.77 MG/DL (0.70-1.30); GLOMERULAR FILTRATION RATE > 60.0 (>49); GLUCOSE, FASTING 177 MG/DL (74-106); MAGNESIUM LEVEL 1.6 MG/DL (1.8-2.4); POTASSIUM SERUM 4.3 MMOL/L (3.5-5.1); SODIUM LEVEL 141 MMOL/L (136-145); TOTAL PROTEIN 5.8 G/DL (5.7-8.2)
[2023-03-26 08:05] LABS: HEPATITIS C VIRUS ABY INDEX 0.05 INDEX (<0.8)
[2023-03-26 08:06] LABS: HEPATITIS B CORE ANTIBODY IGM NEGATIVE (NEGATIVE)
[2023-03-26] MEDS: lisinopriL 40MG TAB PO SCH (08:40)
[2023-03-26] MEDS: MAGNESIUM OXIDE 400MG TAB (MAG-OX) PO SCH ×3 (08:40→19:37)
[2023-03-26] MEDS: LACTOBACILLUS ACIDOPHILUS CAP (BACID) PO SCH ×4 (08:42→19:36)
[2023-03-26] MEDS: MAG SULF 1GM/100ML (MAG RUN) 1 GM in IV 1 EA IV SCH ×2 (09:44→12:06)
[2023-03-26] MEDS: INSULIN LISPRO (NovoLOG) PER UNIT SC SCH ×4 (09:45→19:36)
[2023-03-26 14:00] VITALS: BP 153/74; TEMP 97.2; O2SAT 99
[2023-03-26] MEDS: ASPIRIN 81MG ENTERIC TABLET PO SCH (19:36)
[2023-03-26 22:03] VITALS: BP 153/73; TEMP 99; O2SAT 98
[2023-03-27] MEDS: PIPERACILLIN/TAZOBACTAM SOD 4.5 GM in D5W MINI-BAG PLUS 50 ML IV SCH ×4 (02:44→20:14)
[2023-03-27] MEDS: PERCOCET 5MG/325MG TAB PO PRN ×3 (02:45→20:14)
[2023-03-27] MEDS: HEPARIN SOD (PORCINE) 5000UNITS/ML 1ML VIAL/SYRINGE SQ SCH ×3 (04:14→20:15)
[2023-03-27 06:15] VITALS: BP 131/69; TEMP 97.5; O2SAT 96
[2023-03-27 06:17] LABS: BASO # 0.1 10^3/uL (0.0-0.2); EOS # 0.3 10^3/uL (0.0-0.5); EOS % 2.6 % (0.0-3.0); HEMATOCRIT 30.2 % (42.0-52.0); HEMOGLOBIN 10.1 g/dl (13.5-17.5); LYMPH % 18.3 % (24.0-44.0); MEAN CORPUSCULAR HEMOGLOBIN 30.8 pg (27.0-33.0); MEAN CORPUSCULAR HGB CONC 33.4 g/dl (32.0-36.5); MEAN CORPUSCULAR VOLUME 92.1 fl (80.0-96.0); MONO # 0.9 10^3/uL (0.0-0.8); MONO % 7.7 % (2.0-8.0); NEUTROPHILS # 7.5 10^3/uL (1.5-8.5); NEUTROPHILS % 68.7 % (36.0-66.0); PLATELET COUNT, AUTOMATED 467 10^3/uL (150-450); RED BLOOD COUNT 3.28 10^6/uL (4.30-6.10)
[2023-03-27 06:39] LABS: ALBUMIN 2.6 G/DL (3.2-5.2); ALKALINE PHOSPHATASE 86 U/L (46-116); ALT/SGPT 93 U/L (7.0-40); AST/SGOT 37 U/L (<34); BILIRUBIN,TOTAL 0.2 MG/DL (0.3-1.2); BLOOD UREA NITROGEN 11 MG/DL (9-23); CALCIUM LEVEL 8.3 MG/DL (8.3-10.6); CARBON DIOXIDE LEVEL 26 MMOL/L (20-31); CHLORIDE LEVEL 111 MMOL/L (98-107); CREATININE FOR GFR 0.84 MG/DL (0.70-1.30); GLOMERULAR FILTRATION RATE > 60.0 (>49); GLUCOSE, FASTING 163 MG/DL (74-106); MAGNESIUM LEVEL 1.6 MG/DL (1.8-2.4); POTASSIUM SERUM 4.6 MMOL/L (3.5-5.1); SODIUM LEVEL 143 MMOL/L (136-145); TOTAL PROTEIN 5.9 G/DL (5.7-8.2)
[2023-03-27] MEDS: MAG SULF 1GM/100ML (MAG RUN) 1 GM in IV 1 EA IV SCH ×3 (07:32→10:36)
[2023-03-27] MEDS: LACTOBACILLUS ACIDOPHILUS CAP (BACID) PO SCH ×4 (08:30→20:14)
[2023-03-27] MEDS: MAGNESIUM OXIDE 400MG TAB (MAG-OX) PO SCH ×3 (08:31→20:14)
[2023-03-27] MEDS: lisinopriL 40MG TAB PO SCH (08:31)
[2023-03-27] MEDS: INSULIN LISPRO (NovoLOG) PER UNIT SC SCH ×4 (08:32→20:58)
[2023-03-27 14:00] VITALS: BP 138/67; TEMP 98.6; O2SAT 98
[2023-03-27] MEDS: ASPIRIN 81MG ENTERIC TABLET PO SCH (20:14)
[2023-03-27 20:57] VITALS: BP 148/66; TEMP 98.2; O2SAT 96
[2023-03-28] MEDS: PIPERACILLIN/TAZOBACTAM SOD 4.5 GM in D5W MINI-BAG PLUS 50 ML IV SCH ×3 (02:27→14:22)
[2023-03-28] MEDS: HEPARIN SOD (PORCINE) 5000UNITS/ML 1ML VIAL/SYRINGE SQ SCH ×3 (04:56→21:10)
[2023-03-28] MEDS: PERCOCET 5MG/325MG TAB PO PRN ×2 (04:56→21:09)
[2023-03-28 06:00] VITALS: BP 148/67; TEMP 98.8; O2SAT 98
[2023-03-28 06:22] LABS: BASO # 0.1 10^3/uL (0.0-0.2); BASO % 0.8 % (0.0-1.0); EOS # 0.3 10^3/uL (0.0-0.5); EOS % 2.6 % (0.0-3.0); HEMATOCRIT 28.9 % (42.0-52.0); HEMOGLOBIN 9.6 g/dl (13.5-17.5); LYMPH % 18.9 % (24.0-44.0); MEAN CORPUSCULAR HEMOGLOBIN 30.8 pg (27.0-33.0); MEAN CORPUSCULAR HGB CONC 33.2 g/dl (32.0-36.5); MEAN CORPUSCULAR VOLUME 92.6 fl (80.0-96.0); MONO # 0.8 10^3/uL (0.0-0.8); MONO % 7.5 % (2.0-8.0); NEUTROPHILS # 7.3 10^3/uL (1.5-8.5); NEUTROPHILS % 68.3 % (36.0-66.0); PLATELET COUNT, AUTOMATED 480 10^3/uL (150-450); RED BLOOD COUNT 3.12 10^6/uL (4.30-6.10); WHITE BLOOD COUNT 10.7 10^3/uL (4.0-10.0)
[2023-03-28 06:43] LABS: ALBUMIN 2.7 G/DL (3.2-5.2); ALKALINE PHOSPHATASE 84 U/L (46-116); ALT/SGPT 74 U/L (7.0-40); AST/SGOT 26 U/L (<34); BILIRUBIN,TOTAL 0.2 MG/DL (0.3-1.2); BLOOD UREA NITROGEN 12 MG/DL (9-23); CALCIUM LEVEL 8.2 MG/DL (8.3-10.6); CARBON DIOXIDE LEVEL 24 MMOL/L (20-31); CHLORIDE LEVEL 109 MMOL/L (98-107); CREATININE FOR GFR 0.79 MG/DL (0.70-1.30); GLOMERULAR FILTRATION RATE > 60.0 (>49); GLUCOSE, FASTING 144 MG/DL (74-106); MAGNESIUM LEVEL 1.8 MG/DL (1.8-2.4); POTASSIUM SERUM 4.6 MMOL/L (3.5-5.1); SODIUM LEVEL 140 MMOL/L (136-145); TOTAL PROTEIN 5.8 G/DL (5.7-8.2)
[2023-03-28] MEDS: LACTOBACILLUS ACIDOPHILUS CAP (BACID) PO SCH ×4 (07:57→21:08)
[2023-03-28] MEDS: INSULIN LISPRO (NovoLOG) PER UNIT SC SCH ×5 (07:57→21:00)
[2023-03-28] MEDS: MAGNESIUM OXIDE 400MG TAB (MAG-OX) PO SCH ×3 (07:57→21:10)
[2023-03-28] MEDS: lisinopriL 40MG TAB PO SCH (07:58)
[2023-03-28 14:00] VITALS: BP 152/78; TEMP 98.8; O2SAT 99
[2023-03-28] MEDS: AUGMENTIN 875 MG TAB PO SCH (21:08)
[2023-03-28] MEDS: ASPIRIN 81MG ENTERIC TABLET PO SCH (21:10)
[2023-03-28 22:00] VITALS: BP 134/56; TEMP 99; O2SAT 99
[2023-03-29] MEDS: HEPARIN SOD (PORCINE) 5000UNITS/ML 1ML VIAL/SYRINGE SQ SCH (05:21)
[2023-03-29 05:25] VITALS: BP 146/74; TEMP 98.6; O2SAT 96
[2023-03-29] MEDS: PERCOCET 5MG/325MG TAB PO PRN (05:32)
[2023-03-29 06:19] LABS: BASO # 0.1 10^3/uL (0.0-0.2); BASO % 0.8 % (0.0-1.0); EOS # 0.3 10^3/uL (0.0-0.5); EOS % 2.9 % (0.0-3.0); HEMOGLOBIN 9.9 g/dl (13.5-17.5); LYMPH # 2.1 10^3/uL (1.5-5.0); LYMPH % 20.9 % (24.0-44.0); MEAN CORPUSCULAR HEMOGLOBIN 30.9 pg (27.0-33.0); MEAN CORPUSCULAR VOLUME 93.8 fl (80.0-96.0); MONO # 0.8 10^3/uL (0.0-0.8); MONO % 7.5 % (2.0-8.0); NEUTROPHILS # 6.7 10^3/uL (1.5-8.5); NEUTROPHILS % 65.9 % (36.0-66.0); PLATELET COUNT, AUTOMATED 489 10^3/uL (150-450); WHITE BLOOD COUNT 10.2 10^3/uL (4.0-10.0)
[2023-03-29 06:32] VITALS: O2SAT 96
[2023-03-29 06:53] LABS: ALBUMIN 2.8 G/DL (3.2-5.2); ALKALINE PHOSPHATASE 81 U/L (46-116); ALT/SGPT 54 U/L (7.0-40); AST/SGOT 15 U/L (<34); BILIRUBIN,TOTAL 0.2 MG/DL (0.3-1.2); BLOOD UREA NITROGEN 16 MG/DL (9-23); CALCIUM LEVEL 8.5 MG/DL (8.3-10.6); CARBON DIOXIDE LEVEL 25 MMOL/L (20-31); CHLORIDE LEVEL 109 MMOL/L (98-107); CREATININE FOR GFR 0.83 MG/DL (0.70-1.30); GLOMERULAR FILTRATION RATE > 60.0 (>49); GLUCOSE, FASTING 174 MG/DL (74-106); MAGNESIUM LEVEL 1.8 MG/DL (1.8-2.4); POTASSIUM SERUM 4.7 MMOL/L (3.5-5.1); SODIUM LEVEL 141 MMOL/L (136-145); TOTAL PROTEIN 5.9 G/DL (5.7-8.2)
[2023-03-29] MEDS: INSULIN LISPRO (NovoLOG) PER UNIT SC SCH ×2 (07:52→12:00)
[2023-03-29] MEDS: LACTOBACILLUS ACIDOPHILUS CAP (BACID) PO SCH ×2 (07:53→12:06)
[2023-03-29] MEDS: AUGMENTIN 875 MG TAB PO SCH (07:56)
[2023-03-29] MEDS: lisinopriL 40MG TAB PO SCH (07:56)
[2023-03-29] MEDS: MAGNESIUM OXIDE 400MG TAB (MAG-OX) PO SCH (07:56)
[2023-03-29 07:57] VITALS: BP 165/74
[2023-03-29] MEDS ORDERED: PERCOCET PO (09:18)
[2023-03-29] MEDS ORDERED: RISATAB3 PO (09:18)
[2023-03-29] MEDS ORDERED: MAGN400T2 PO (09:18)
[2023-03-29] MEDS ORDERED: AMOX875T2 PO (09:18)
[2023-03-29 09:58] VITALS: BP 147/74
== END 2023-03-29 12:31 | disposition home health service (06) | DRG 383 ==
LOC: M ED 14:10 → M ED INP 23:15 → M ICU 03-22 03:25 → M PCU 03-23 17:51 → M MSPAV 03-24 14:31
PROVIDERS: ADMIT Internal Medicine; ATTEND Internal Medicine
PROC: 0JBL0ZZ Excision of Right Upper Leg Subcutaneous Tissue and Fascia, Open Approach (ICD-10-PCS; principal; 2023-03-22)
DX: L02.426 Furuncle of left lower limb (principal); M72.6 Necrotizing fasciitis; R82.71 Bacteriuria; N17.9 Acute kidney failure, unspecified; F17.290 Nicotine dependence, other tobacco product, uncomplicated; I10 Essential (primary) hypertension; D64.9 Anemia, unspecified; L02.415 Cutaneous abscess of right lower limb; R00.1 Bradycardia, unspecified; B96.20 Unspecified Escherichia coli [E. coli] as the cause of diseases classified elsewhere; E11.9 Type 2 diabetes mellitus without complications; E87.1 Hypo-osmolality and hyponatremia; E83.42 Hypomagnesemia; R74.01 Elevation of levels of liver transaminase levels; E78.5 Hyperlipidemia, unspecified; Z79.84 Long term (current) use of oral hypoglycemic drugs; Z79.82 Long term (current) use of aspirin; Z79.899 Other long term (current) drug therapy; Z20.822 Contact with and (suspected) exposure to COVID-19

== ENCOUNTER → 2023-04-06 | Outpatient (REF) | payer OTHER, MEDICAID ==
[~2023-04-06] MED LIST changes: +AMOX875T2 PO; +MAGN400T2 PO; +METF10004 PO; +PERCOCET PO; +RISATAB3 PO; +TAMS1CAP17
[2023-04-06 13:50] LABS: MAU/CREAT RATIO 61.6 MCG/MG (0.0-30.0)
== END ==
LOC: M LAB REF 11:54
PROVIDERS: ATTEND Nurse Practitioner Family
DX: E11.65 Type 2 diabetes mellitus with hyperglycemia (principal)

== ENCOUNTER → 2023-05-06 | Outpatient (REF) | payer OTHER, MEDICAID ==
[2023-05-06 12:56] LABS: BASO # 0.1 10^3/uL (0.0-0.2); BASO % 0.5 % (0.0-1.0); EOS # 0.2 10^3/uL (0.0-0.5); EOS % 1.3 % (0.0-3.0); HEMATOCRIT 38.3 % (42.0-52.0); HEMOGLOBIN 12.4 g/dl (13.5-17.5); LYMPH # 2.3 10^3/uL (1.5-5.0); LYMPH % 16.9 % (24.0-44.0); MEAN CORPUSCULAR HEMOGLOBIN 30.6 pg (27.0-33.0); MEAN CORPUSCULAR HGB CONC 32.4 g/dl (32.0-36.5); MEAN CORPUSCULAR VOLUME 94.6 fl (80.0-96.0); MONO # 0.9 10^3/uL (0.0-0.8); NEUTROPHILS # 9.9 10^3/uL (1.5-8.5); PLATELET COUNT, AUTOMATED 470 10^3/uL (150-450); RED BLOOD COUNT 4.05 10^6/uL (4.30-6.10); WHITE BLOOD COUNT 13.3 10^3/uL (4.0-10.0)
[2023-05-06 13:03] LABS: ALBUMIN 3.9 G/DL (3.2-5.2); ALKALINE PHOSPHATASE 112 U/L (46-116); ALT/SGPT 21 U/L (7.0-40); AST/SGOT 14 U/L (<34); BILIRUBIN,TOTAL 0.3 MG/DL (0.3-1.2); BLOOD UREA NITROGEN 20 MG/DL (9-23); CALCIUM LEVEL 9.4 MG/DL (8.3-10.6); CARBON DIOXIDE LEVEL 25 MMOL/L (20-31); CHLORIDE LEVEL 108 MMOL/L (98-107); CHOLESTEROL LEVEL 179 MG/DL (<200); CHOLESTEROL RISK RATIO 5.01 (<5); GLOMERULAR FILTRATION RATE > 60.0 (>49); GLUCOSE, FASTING 169 MG/DL (74-106); HDL CHOLESTEROL 35.7 MG/DL (>40); LDL CHOLESTEROL 91.7 MG/DL (<100); NON-HDL-C 143.3 MG/DL; POTASSIUM SERUM 5.5 MMOL/L (3.5-5.1); SODIUM LEVEL 141 MMOL/L (136-145); TOTAL PROTEIN 7.3 G/DL (5.7-8.2); TRIGLYCERIDES LEVEL 258 MG/DL (<150)
[2023-05-06 13:05] LABS: TOTAL 25(OH) VITAMIN D 32.1 NG/ML (20.0-100.0)
[2023-05-06 13:28] LABS: HEMOGLOBIN A1c 6.2 % (4.0-6.0)
== END ==
LOC: M LAB REF 12:23
PROVIDERS: ATTEND Nurse Practitioner Family
DX: E11.65 Type 2 diabetes mellitus with hyperglycemia (principal); E78.5 Hyperlipidemia, unspecified; E55.9 Vitamin D deficiency, unspecified; E66.3 Overweight; Z12.5 Encounter for screening for malignant neoplasm of prostate

== ENCOUNTER → 2023-05-19 | Outpatient (REF) | payer OTHER, MEDICAID ==
[2023-05-19 13:19] LABS: CREATININE, URINE 163.9 MG/DL; CREATININE,RANDOM URINE 163.9 MG/DL; MAU/CREAT RATIO 45.1 MCG/MG (0.0-30.0)
== END ==
LOC: M LAB REF 12:11
PROVIDERS: ATTEND Nurse Practitioner Family
DX: E11.65 Type 2 diabetes mellitus with hyperglycemia (principal)

== ENCOUNTER → 2023-06-02 | Outpatient (REF) | payer OTHER, MEDICAID ==
[2023-06-02 13:08] LABS: ALKALINE PHOSPHATASE 117 U/L (46-116); ALT/SGPT 20 U/L (7.0-40); AST/SGOT 14 U/L (<34); BILIRUBIN,TOTAL 0.3 MG/DL (0.3-1.2); BLOOD UREA NITROGEN 20 MG/DL (9-23); CALCIUM LEVEL 8.9 MG/DL (8.3-10.6); CARBON DIOXIDE LEVEL 27 MMOL/L (20-31); CHLORIDE LEVEL 107 MMOL/L (98-107); CREATININE FOR GFR 0.99 MG/DL (0.70-1.30); GLOMERULAR FILTRATION RATE > 60.0 (>49); GLUCOSE, FASTING 179 MG/DL (74-106); POTASSIUM SERUM 4.8 MMOL/L (3.5-5.1); SODIUM LEVEL 141 MMOL/L (136-145); TOTAL PROTEIN 7.3 G/DL (5.7-8.2)
[2023-06-02 13:20] LABS: BASO # 0.1 10^3/uL (0.0-0.2); BASO % 0.9 % (0.0-1.0); EOS # 0.2 10^3/uL (0.0-0.5); EOS % 1.9 % (0.0-3.0); HEMATOCRIT 38.1 % (42.0-52.0); HEMOGLOBIN 12.3 g/dl (13.5-17.5); LYMPH # 2.3 10^3/uL (1.5-5.0); LYMPH % 26.3 % (24.0-44.0); MEAN CORPUSCULAR HEMOGLOBIN 30.4 pg (27.0-33.0); MEAN CORPUSCULAR HGB CONC 32.3 g/dl (32.0-36.5); MEAN CORPUSCULAR VOLUME 94.3 fl (80.0-96.0); MONO # 0.8 10^3/uL (0.0-0.8); MONO % 9.1 % (2.0-8.0); NEUTROPHILS # 5.5 10^3/uL (1.5-8.5); NEUTROPHILS % 61.6 % (36.0-66.0); PLATELET COUNT, AUTOMATED 435 10^3/uL (150-450); RED BLOOD COUNT 4.04 10^6/uL (4.30-6.10); WHITE BLOOD COUNT 8.9 10^3/uL (4.0-10.0)
[2023-06-02 13:33] LABS: CREATININE, URINE 136.1 MG/DL; MAU/CREAT RATIO 55.8 MCG/MG (0.0-30.0)
== END ==
LOC: M LAB REF 11:47
PROVIDERS: ATTEND Nurse Practitioner Family
DX: E11.65 Type 2 diabetes mellitus with hyperglycemia (principal); D72.829 Elevated white blood cell count, unspecified

== ENCOUNTER → 2023-06-13 | Outpatient (REF) | payer OTHER, MEDICAID | LOC: M SFHCWOUN 16:20 | PROVIDERS: ATTEND Surgery | DX: S71.101A Unspecified open wound, right thigh, initial encounter (principal); B95.7 Other staphylococcus as the cause of diseases classified elsewhere; D37.4 Neoplasm of uncertain behavior of colon; Y92.9 Unspecified place or not applicable; Y93.9 Activity, unspecified ==

== ENCOUNTER → 2023-07-05 | Outpatient (REF) | payer OTHER, MEDICAID | LOC: M SFHCWOUN 13:02 | PROVIDERS: ATTEND Surgery | DX: L72.0 Epidermal cyst (principal) ==

== ENCOUNTER → 2023-08-01 | Outpatient (REF) | payer OTHER, MEDICAID ==
[2023-08-01 19:21] LABS: HEMOGLOBIN A1c 6.5 % (4.0-6.0)
== END ==
LOC: M LAB REF 16:28
PROVIDERS: ATTEND Nurse Practitioner Family
DX: E11.65 Type 2 diabetes mellitus with hyperglycemia (principal)

== ENCOUNTER → 2023-11-03 | Outpatient (REF) | payer OTHER, MEDICAID ==
[2023-11-03 14:11] LABS: BILIRUBIN,TOTAL 0.3 MG/DL (0.3-1.2); CALCIUM LEVEL 9.6 MG/DL (8.3-10.6); CHOLESTEROL RISK RATIO 8.55 (<5); CREATININE FOR GFR 1.58 MG/DL (0.70-1.30); GLOMERULAR FILTRATION RATE 47.4 (>49); HDL CHOLESTEROL 25.6 MG/DL (>40); LDL CHOLESTEROL 152.6 MG/DL (<100); MAGNESIUM LEVEL 1.9 MG/DL (1.8-2.4); NON-HDL-C 193.4 MG/DL; POTASSIUM SERUM 4.5 MMOL/L (3.5-5.1); TOTAL PROTEIN 7.3 G/DL (5.7-8.2)
[2023-11-03 14:22] LABS: HEMOGLOBIN A1c 5.6 % (4.0-6.0)
== END ==
LOC: M LAB REF 11:47
PROVIDERS: ATTEND Nurse Practitioner Family
DX: E11.65 Type 2 diabetes mellitus with hyperglycemia (principal); E78.5 Hyperlipidemia, unspecified; I10 Essential (primary) hypertension

== ENCOUNTER → 2023-11-21 | Outpatient (REF) | payer OTHER, MEDICAID ==
[2023-11-21 19:01] LABS: ALBUMIN 3.8 G/DL (3.2-5.2); ALKALINE PHOSPHATASE 111 U/L (46-116); ALT/SGPT 10 U/L (7.0-40); AST/SGOT < 8 U/L (<34); BILIRUBIN,TOTAL 0.2 MG/DL (0.3-1.2); BLOOD UREA NITROGEN 22 MG/DL (9-23); CALCIUM LEVEL 9.3 MG/DL (8.3-10.6); CARBON DIOXIDE LEVEL 24 MMOL/L (20-31); CHLORIDE LEVEL 111 MMOL/L (98-107); CREATININE FOR GFR 1.35 MG/DL (0.70-1.30); GLOMERULAR FILTRATION RATE 56.8 (>49); GLUCOSE, FASTING 91 MG/DL (74-106); POTASSIUM SERUM 4.9 MMOL/L (3.5-5.1); SODIUM LEVEL 141 MMOL/L (136-145); TOTAL PROTEIN 6.8 G/DL (5.7-8.2)
[2023-11-21 19:13] LABS: CREATININE, URINE 244.3 MG/DL
== END ==
LOC: M LAB REF 17:17
PROVIDERS: ATTEND Nurse Practitioner Family
DX: I10 Essential (primary) hypertension (principal)

== ENCOUNTER 2024-01-03 10:18 | Emergency (ER) | payer OTHER, MEDICAID ==
[~2024-01-03] VITALS: Ht 193 cm; Wt 99.5 kg
[2024-01-03] MEDS ORDERED: HYDR12CA (10:32)
[2024-01-03] MEDS ORDERED: NAPR-837 PO (11:41)
[2024-01-03] MEDS ORDERED: METH-1165 PO (11:41)
[2024-01-03 11:53] VITALS: BP 140/72; TEMP 98; O2SAT 99
== END 2024-01-03 11:55 | disposition home or self-care (01) ==
LOC: M ED 10:18
DX: M48.07 Spinal stenosis, lumbosacral region (principal); I10 Essential (primary) hypertension; E78.5 Hyperlipidemia, unspecified; E11.9 Type 2 diabetes mellitus without complications; Z79.82 Long term (current) use of aspirin; Z79.4 Long term (current) use of insulin; Z79.899 Other long term (current) drug therapy

== ENCOUNTER 2024-01-10 08:22 | Emergency (ER) | payer OTHER, MEDICAID ==
[~2024-01-10] VITALS: Ht 190.5 cm; Wt 96.3 kg
[~2024-01-10 08:22] MED LIST changes: +HYDR12CA; +METH-1165 PO; +NAPR-837 PO
[2024-01-10] MEDS: LIDOCAINE 5% (LIDODERM) PATCH TD ONE (09:29)
[2024-01-10] MEDS ORDERED: TRAM50TA2 PO (11:07)
[2024-01-10] MEDS ORDERED: MEDR4PAK PO (11:07)
[2024-01-10 11:17] VITALS: BP 160/74; TEMP 97.5; O2SAT 100
== END 2024-01-10 11:18 | disposition home or self-care (01) ==
LOC: M ED 08:22
DX: M54.31 Sciatica, right side (principal); F17.200 Nicotine dependence, unspecified, uncomplicated; Z79.82 Long term (current) use of aspirin; Z79.84 Long term (current) use of oral hypoglycemic drugs; Z79.899 Other long term (current) drug therapy

== ENCOUNTER → 2024-01-18 | Outpatient (CLI) | payer OTHER, MEDICAID ==
[~2024-01-18] MED LIST changes: +MEDR4PAK PO; +PROHANCE 279.3MG/ML 15ML VIAL ONE; +PROHANCE 279.3MG/ML 5ML VIAL ONE; +TRAM50TA2 PO
== END ==
LOC: M PLAIMG 07:29
PROVIDERS: ATTEND Orthopaedic Surgery
DX: M51.26 Other intervertebral disc displacement, lumbar region (principal); M47.816 Spondylosis without myelopathy or radiculopathy, lumbar region
CPT/HCPCS: 72158; A9576

== ENCOUNTER → 2024-02-07 | Outpatient (CLI) | payer OTHER, MEDICAID ==
[~2024-02-07] MED LIST changes: -PROHANCE 279.3MG/ML 15ML VIAL ONE; -PROHANCE 279.3MG/ML 5ML VIAL ONE
== END ==
LOC: M PAIN 13:00
PROVIDERS: ATTEND Nurse Practitioner Family
DX: M51.16 Intervertebral disc disorders with radiculopathy, lumbar region (principal); M96.1 Postlaminectomy syndrome, not elsewhere classified; G89.29 Other chronic pain; E11.9 Type 2 diabetes mellitus without complications; E78.5 Hyperlipidemia, unspecified; Z79.84 Long term (current) use of oral hypoglycemic drugs; Z79.899 Other long term (current) drug therapy; Z79.891 Long term (current) use of opiate analgesic; Z79.82 Long term (current) use of aspirin; Z88.8 Allergy status to other drugs, medicaments and biological substances

== ENCOUNTER → 2024-02-14 | Outpatient (REF) | payer OTHER, MEDICAID ==
[2024-02-14 16:55] LABS: ALBUMIN 3.8 G/DL (3.2-5.2); ALKALINE PHOSPHATASE 97 U/L (46-116); ALT/SGPT 11 U/L (7.0-40); AST/SGOT < 8 U/L (<34); BILIRUBIN,TOTAL 0.2 MG/DL (0.3-1.2); BLOOD UREA NITROGEN 22 MG/DL (9-23); CALCIUM LEVEL 9.5 MG/DL (8.3-10.6); CARBON DIOXIDE LEVEL 28 MMOL/L (20-31); CHLORIDE LEVEL 105 MMOL/L (98-107); CHOLESTEROL LEVEL 153 MG/DL (<200); CHOLESTEROL RISK RATIO 5.33 (<5); CREATININE FOR GFR 1.09 MG/DL (0.70-1.30); GLOMERULAR FILTRATION RATE > 60.0 (>49); GLUCOSE, FASTING 116 MG/DL (74-106); HDL CHOLESTEROL 28.7 MG/DL (>40); LDL CHOLESTEROL 67.3 MG/DL (<100); NON-HDL-C 124.3 MG/DL; POTASSIUM SERUM 4.8 MMOL/L (3.5-5.1); SODIUM LEVEL 138 MMOL/L (136-145); TOTAL PROTEIN 7.1 G/DL (5.7-8.2); TRIGLYCERIDES LEVEL 285 MG/DL (<150)
== END ==
LOC: M LAB REF 16:20
PROVIDERS: ATTEND Nurse Practitioner Family
DX: E78.5 Hyperlipidemia, unspecified (principal)

== ENCOUNTER → 2024-09-17 | Outpatient (REF) | payer OTHER, MEDICAID ==
[~2024-09-17] MED LIST changes: -HYDR12CA; +HYDR12CA PO; +IBUP200C28 PO
[2024-09-17 14:11] LABS: BASO # 0.1 10^3/uL (0.0-0.2); BASO % 0.7 % (0.0-1.0); EOS # 0.3 10^3/uL (0.0-0.5); EOS % 2.3 % (0.0-3.0); HEMOGLOBIN 9.5 g/dl (13.5-17.5); LYMPH # 1.6 10^3/uL (1.5-5.0); LYMPH % 14.3 % (24.0-44.0); MEAN CORPUSCULAR HEMOGLOBIN 27.9 pg (27.0-33.0); MEAN CORPUSCULAR HGB CONC 30.6 g/dl (32.0-36.5); MEAN CORPUSCULAR VOLUME 91.2 fl (80.0-96.0); MONO # 1.1 10^3/uL (0.0-0.8); MONO % 9.4 % (2.0-8.0); NEUTROPHILS # 8.2 10^3/uL (1.5-8.5); NEUTROPHILS % 72.9 % (36.0-66.0); PLATELET COUNT, AUTOMATED 339 10^3/uL (150-450); WHITE BLOOD COUNT 11.3 10^3/uL (4.0-10.0)
[2024-09-17 14:29] LABS: HEMOGLOBIN A1c 5.4 % (4.0-6.0)
[2024-09-17 14:46] LABS: ALBUMIN 3.8 G/DL (3.2-5.2); BILIRUBIN,TOTAL 0.2 MG/DL (0.3-1.2); CALCIUM LEVEL 8.8 MG/DL (8.3-10.6); CHOLESTEROL RISK RATIO 5.01 (<5); CREATININE FOR GFR 1.14 MG/DL (0.70-1.30); GLOMERULAR FILTRATION RATE 71.8 (>49); HDL CHOLESTEROL 29.7 MG/DL (>40); LDL CHOLESTEROL 77.5 MG/DL (<100); MAGNESIUM LEVEL 2.1 MG/DL (1.8-2.4); NON-HDL-C 119.3 MG/DL; POTASSIUM SERUM 5.1 MMOL/L (3.5-5.1); TOTAL PROTEIN 6.9 G/DL (5.7-8.2)
[2024-09-17 14:47] LABS: THYROID STIMULATING HORMONE 0.453 uIU/ML (0.55-4.78)
== END ==
LOC: M LAB REF 11:56
PROVIDERS: ATTEND Nurse Practitioner Family
DX: E66.3 Overweight (principal)

== ENCOUNTER 2024-09-20 08:37 | Day surgery (SDC) | payer OTHER ==
[~2024-09-20] VITALS: Ht 190.5 cm; Wt 97.5 kg
[2024-09-20] MEDS ORDERED: LIDOCAINE 2% 100MG/5ML SDV (FOR ANES.) As Ordered ONE (09:26)
[2024-09-20] MEDS ORDERED: propofoL 200 MG/20 ML VIAL As Ordered ONE (09:26)
[2024-09-20 10:01] VITALS: TEMP 97.6
[2024-09-20 10:20] VITALS: BP 117/55; O2SAT 97
== END 2024-09-20 10:27 | disposition home or self-care (01) ==
LOC: M OPP 08:37
PROVIDERS: ATTEND Surgery
DX: D12.7 Benign neoplasm of rectosigmoid junction (principal); K57.30 Diverticulosis of large intestine without perforation or abscess without bleeding; K64.8 Other hemorrhoids; Z86.0100 Personal history of colon polyps, unspecified; Z79.82 Long term (current) use of aspirin; Z79.84 Long term (current) use of oral hypoglycemic drugs; Z79.899 Other long term (current) drug therapy; F17.290 Nicotine dependence, other tobacco product, uncomplicated

== ENCOUNTER → 2024-11-05 | Outpatient (CLI) | payer OTHER, MEDICAID ==
[~2024-11-05] MED LIST changes: +HYDR12.510 PO; -HYDR12CA PO; +LISI40TA10 PO; -LISI40TA4 PO
== END ==
LOC: M RAD 12:32
PROVIDERS: ATTEND Nurse Practitioner Family
DX: R79.89 Other specified abnormal findings of blood chemistry (principal); E04.1 Nontoxic single thyroid nodule

== ENCOUNTER → 2024-12-20 | Outpatient (REF) | payer OTHER, MEDICAID ==
[2024-12-20 16:58] LABS: IRON (FE) 22.0 UG/DL (65-175)
[2024-12-20 16:59] LABS: PERCENT SATURATION 5.6 % (19.7-50.0)
[2024-12-20 17:14] LABS: BASO # 0.1 10^3/uL (0.0-0.2); BASO % 0.7 % (0.0-1.0); EOS # 0.2 10^3/uL (0.0-0.5); EOS % 2.4 % (0.0-3.0); LYMPH # 1.3 10^3/uL (1.5-5.0); LYMPH % 13.5 % (24.0-44.0); MONO # 0.7 10^3/uL (0.0-0.8); MONO % 7.7 % (2.0-8.0); NEUTROPHILS # 7.0 10^3/uL (1.5-8.5); NEUTROPHILS % 75.2 % (36.0-66.0); PLATELET COUNT, AUTOMATED 380 10^3/uL (150-450)
== END ==
LOC: M LAB REF 16:30
PROVIDERS: ATTEND Physician Assistant
DX: D64.9 Anemia, unspecified (principal)

== ENCOUNTER → 2025-01-08 | Outpatient (CLI) | payer OTHER ==
[2025-01-08 13:02] LABS: VITAMIN B12 LEVEL 266.0 PG/ML (211-911)
== END ==
LOC: M WUC 10:48
PROVIDERS: ATTEND Physician Assistant
DX: D50.9 Iron deficiency anemia, unspecified (principal)

== ENCOUNTER → 2025-01-16 | Outpatient (REF) | payer OTHER ==
[2025-01-16 14:13] LABS: BASO # 0.1 10^3/uL (0.0-0.2); BASO % 0.6 % (0.0-1.0); EOS # 0.2 10^3/uL (0.0-0.5); EOS % 2.1 % (0.0-3.0); LYMPH # 1.4 10^3/uL (1.5-5.0); LYMPH % 13.7 % (24.0-44.0); MONO # 0.9 10^3/uL (0.0-0.8); MONO % 8.2 % (2.0-8.0); NEUTROPHILS # 7.7 10^3/uL (1.5-8.5); NEUTROPHILS % 75.0 % (36.0-66.0); PLATELET COUNT, AUTOMATED 298 10^3/uL (150-450)
== END ==
LOC: M LABDRWAD 13:12
PROVIDERS: ATTEND Physician Assistant
DX: D50.9 Iron deficiency anemia, unspecified (principal)

== ENCOUNTER → 2025-01-29 | Outpatient (REF) | payer OTHER ==
[2025-01-29 13:49] LABS: BASO # 0.1 10^3/uL (0.0-0.2); BASO % 0.7 % (0.0-1.0); EOS # 0.2 10^3/uL (0.0-0.5); EOS % 2.3 % (0.0-3.0); LYMPH # 1.3 10^3/uL (1.5-5.0); LYMPH % 14.1 % (24.0-44.0); MONO # 0.7 10^3/uL (0.0-0.8); MONO % 8.0 % (2.0-8.0); NEUTROPHILS # 6.7 10^3/uL (1.5-8.5); NEUTROPHILS % 74.5 % (36.0-66.0); PLATELET COUNT, AUTOMATED 296 10^3/uL (150-450)
[2025-01-29 15:02] LABS: ALT/SGPT 13.0 U/L (7.0-40); AST/SGOT 15.0 U/L (<34); CALCIUM LEVEL 8.7 MG/DL (8.3-10.6); CARBON DIOXIDE LEVEL 24.0 MMOL/L (20-31); CHLORIDE LEVEL 113.0 MMOL/L (98-107); CREATININE FOR GFR 1.08 MG/DL (0.70-1.30); GLOMERULAR FILTRATION RATE 76.6 (>49); IRON (FE) 149.0 UG/DL (65-175); POTASSIUM SERUM 4.7 MMOL/L (3.5-5.1); SODIUM LEVEL 141.0 MMOL/L (136-145)
== END ==
LOC: M LAB REF 12:20
PROVIDERS: ATTEND Physician Assistant
DX: D50.9 Iron deficiency anemia, unspecified (principal); I10 Essential (primary) hypertension

== ENCOUNTER → 2025-04-11 | Outpatient (REF) | payer OTHER ==
[2025-04-11 17:30] LABS: BASO # 0.1 10^3/uL (0.0-0.2); BASO % 0.6 % (0.0-1.0); EOS # 0.2 10^3/uL (0.0-0.5); EOS % 1.3 % (0.0-3.0); LYMPH # 1.5 10^3/uL (1.5-5.0); LYMPH % 12.5 % (24.0-44.0); MONO # 0.9 10^3/uL (0.0-0.8); MONO % 7.4 % (2.0-8.0); NEUTROPHILS # 9.3 10^3/uL (1.5-8.5); NEUTROPHILS % 77.6 % (36.0-66.0); PLATELET COUNT, AUTOMATED 306 10^3/uL (150-450)
[2025-04-11 17:35] LABS: VITAMIN B12 LEVEL 299.0 PG/ML (211-911)
[2025-04-11 17:37] LABS: IRON (FE) 31.0 UG/DL (65-175)
[2025-04-11 17:39] LABS: PERCENT SATURATION 8.3 % (19.7-50.0)
== END ==
LOC: M LAB REF 16:26
PROVIDERS: ATTEND Physician Assistant
DX: D50.9 Iron deficiency anemia, unspecified (principal)